=== PATIENT | female | born 1955 | race Caucasian/White ===

== ENCOUNTER → 2019-03-28 | Outpatient (CLI) | payer OTHER | END | disposition home or self-care (01) | LOC: LAB SHORT 05:30 → OLS 05:30 | DX: K51.90 Ulcerative colitis, unspecified, without complications (principal) | CPT/HCPCS: 83993 ==

== ENCOUNTER 2019-08-13 08:12 | Day surgery (SDC) | payer OTHER ==
[~2019-08-13] VITALS: Ht 165.1 cm; Wt 62.9 kg
[~2019-08-13 08:12] MED LIST: ALLO100 PO; LORA.5 PO; Purinethol50 MG PO
--- NOTE | 2019-08-13 09:33 | NUR ---
08/13/19 0933 SHANNAN VAZQUEZ THREE BAD IVS DUE TO VALVES AND INFLITRATION. ONE GOOD IV BY RN IN L WRIST DUE TO LIMPH NODES TAKEN OUT IN RIGHT ARM
== END 2019-08-13 10:46 | disposition home or self-care (01) ==
LOC: ORSCSDS 08:12
PROVIDERS: Internal Medicine Gastroenterology
PROC: 0DBK8ZX Excision of Ascending Colon, Via Natural or Artificial Opening Endoscopic, Diagnostic (ICD-10-PCS; principal; 2019-08-13 09:30)
PROC: 0DBE8ZX Excision of Large Intestine, Via Natural or Artificial Opening Endoscopic, Diagnostic (ICD-10-PCS; principal; 2019-08-13 09:30)
DX: K51.90 Ulcerative colitis, unspecified, without complications (principal); D12.2 Benign neoplasm of ascending colon; K63.5 Polyp of colon; K57.30 Diverticulosis of large intestine without perforation or abscess without bleeding; K64.8 Other hemorrhoids; Z87.891 Personal history of nicotine dependence; Z85.3 Personal history of malignant neoplasm of breast; Z79.899 Other long term (current) drug therapy
CPT/HCPCS: 88305; J2704

== ENCOUNTER → 2020-01-09 | Outpatient (CLI) | payer OTHER | END | disposition home or self-care (01) | LOC: LAB SHORT 05:25 → LAB 05:25 → LAB FUT 12-21 16:45 | DX: K51.90 Ulcerative colitis, unspecified, without complications (principal) | CPT/HCPCS: 83993 ==

== ENCOUNTER → 2022-04-20 | Outpatient (CLI) | payer OTHER ==
[2022-04-20 08:39] LABS: Source, Urine Clean Catch
[2022-04-20 09:15] LABS: Bacteria Not Seen /hpf; Red Blood Cells, Urine 0-2 /hpf (0-2); Squamous Epithelial Cells Few /hpf (Few); White Blood Cells, Urine 0-2 /hpf (0-5)
== END | disposition home or self-care (01) ==
LOC: LAB 08:31 → LAB SHORT 08:31
PROVIDERS: General Practice
DX: R82.90 Unspecified abnormal findings in urine (principal)
CPT/HCPCS: 81015; 87086

== ENCOUNTER → 2023-10-25 | Outpatient (CLI) | payer OTHER ==
[2023-10-25 12:39] LABS: C DIFFICILE DNA NEGATIVE (Negative)
[2023-10-27 14:20] LABS: GIARDIA ANTIGEN BY EIA Negative (Negative)
[2023-10-28 03:21] LABS: CALPROTECTIN,FECAL 143 ug/g (<=49)
[2023-10-29 05:45] LABS: OVA AND PARASITE,FECAL INTERP Negative (Negative)
== END ==
LOC: LAB 06:10 → LAB SHORT 06:10
PROVIDERS: Internal Medicine
DX: K51.90 Ulcerative colitis, unspecified, without complications (principal)
CPT/HCPCS: 83993; 87015; 87045; 87046; 87177; 87205; 87209; 87329; 87493; 87899